=== PATIENT | male | born 1950 | race Caucasian/White ===

== ENCOUNTER 2017-02-28 16:11 | Emergency (ER) | payer OTHER ==
[~2017-02-28] VITALS: Ht 170.2 cm; Wt 89.0 kg
[~2017-02-28 16:11] MED LIST: BENA1TAB4 PO; DIGO125T73 PO; DILT240C62 PO; FLOMAX PO; WARF4TAB PO
[2017-02-28 16:14] VITALS: Ht 170.2 cm; Wt 89.0 kg
[2017-02-28] MEDS ORDERED: TAMS0.4C2 PO (17:10)
[2017-02-28] MEDS ORDERED: DONE10TA7 PO (17:11)
[2017-02-28] MEDS ORDERED: APIX5TAB PO (17:11)
--- NOTE | 2017-02-28 17:19 | ERD ---
ER Documentation Chief Complaint Date/Time DATE: 02/28/17 TIME: 17:19 Chief Complaint DIZZINESS AFTER 2 TAB ARICEPT HPI Patient is a 66-year-old male with hypertension and dementia who presents with dizziness. The patient said that he is supposed to be taking Aricept for the past 1 month but he has not been taking it. He felt like he should be taking it so today he took twice the dose that he was supposed to take and then felt dizzy almost immediately afterwards. He said that he just feels generally weak all over. This happened 1.5 hours ago. His primary doctor is Dr. Mckeon. ROS All systems reviewed and are negative except as per history of present illness. Medications Home Meds Reported Medications Donepezil* (Donepezil*) 10 Mg Tablet, 10 MG PO DAILY, #30 TAB 02/28/17 Apixaban* (Eliquis*) 5 Mg Tablet, 5 MG PO BID, TAB 02/28/17 Tamsulosin Hcl* (Tamsulosin Hcl*) 0.4 Mg Cap.er.24h, 0.4 MG PO BID, CAP 02/28/17 Diltiazem Hcl* (Cartia XT*) 240 Mg Cap.sr.24h, 240 MG PO DAILY 10/09/12 Digoxin (Digoxin) 125 Mcg Tablet, 125 MCG PO DAILY 10/09/12 Benazepril/Hydrochlorothiazide (Benazepril-Hctz 20-25 Mg Tab) 1 Tab Tablet, 1 TAB PO DAILY 10/09/12 Discontinued Reported Medications [Flomax] No Conflict Check, PO DAILY 02/11/14 Warfarin Sodium* (Coumadin*) 4 Mg Tablet, 9 MG PO DAILY, 0 Refills 10/09/12 Allergies Allergies: Coded Allergies: No Known Allergy (Verified , 02/28/17) PMhx/Soc History of Surgery: Yes (rt arm, r inquinal hernia, ) Anesthesia Reaction: No Hx Neurological Disorder: No Hx Respiratory Disorders: No Hx Cardiac Disorders: Yes (a- ffibrillation) Hx Psychiatric Problems: No Hx Miscellaneous Medical Probl: No Hx Alcohol Use: Yes Hx Substance Use: No Hx Tobacco Use: No FmHx Family History: diabetes Physical Exam Vitals Vital Signs Date Time Temp Pulse Resp B/P Pulse Ox O2 Delivery O2 Flow Rate FiO2 02/28/17 16:14 98.1 88 18 166/90 99 Physical Exam Const: No acute distress Head: Atraumatic Eyes: Normal Conjunctiva ENT: Normal External Ears, Nose and Mouth. Neck: Full range of motion..~ No meningismus. Resp: Clear to auscultation bilaterally Cardio: Regular rate and rhythm, no murmurs Abd: Soft, non tender, non distended. Normal bowel sounds Skin: No petechiae or rashes Back: No midline or flank tenderness Ext: No cyanosis, or edema Neur: Awake and alert, no slurred speech, cranial nerves II through XII intact, strength is 5 out of 5 in all 4 extremities, normal Romberg Psych: Normal Mood and Affect Results 24 hrs Laboratory Tests Test 02/28/17 17:18 Bedside Glucose 147mg/dL [facility] EKG read by me: Rate/Rhythm: Regular rate and rhythm at a rate of 76 Intervals: Normal Impression: No evidence of ischemia or arrhythmia Accu-Chek is normal at 147. Patient is a 66-year-old male with dementia and hypertension who presents with dizziness. I believe this is related to taking twice a dose of Aricept that he was supposed to take. I doubt stroke. I doubt intracranial hemorrhage or mass. I doubt acute coronary syndrome or hypoglycemia. The patient will be discharged home and can follow-up with his primary doctor within 24-48 hours. I told him to take only the amount of medicine prescribed to him. Departure Diagnosis: Primary Impression: Medication reaction Encounter type: initial encounter Qualified Code: T88.7XXA - Medication reaction, initial encounter Additional Impression: Dizziness Condition: Fair Patient Instructions: Taking Medication Safely, Dizziness, Unk Cause Additional Instructions: Llame al doctor MALUZ y angela lou JOSE PARA DENTRO DE 1-2 PARADA.Dgale a la secretaria que nosotros le instruimos hacer esta jose.Avise o llame si olivas condicin se empeora antes de la jose. Regresa aqui si peor o no mejor. LLUVIA RAMACHANDRAN MD Feb 28, 2017 17:19
== END 2017-02-28 17:47 | disposition home or self-care (01) ==
LOC: E/R 16:11
DX: R42 Dizziness and giddiness (principal); T44.0X5A Adverse effect of anticholinesterase agents, initial encounter; I10 Essential (primary) hypertension; Z79.01 Long term (current) use of anticoagulants
CPT/HCPCS: 82962; 93005

== ENCOUNTER 2019-03-10 17:26 | Emergency (ER) | payer OTHER ==
[~2019-03-10] VITALS: Ht 170.2 cm; Wt 100.0 kg
[~2019-03-10 17:26] MED LIST changes: +APIX5TAB PO; +DONE10TA7 PO; -FLOMAX PO; +TAMS0.4C2 PO; -WARF4TAB PO
[2019-03-10 17:28] VITALS: Ht 170.2 cm; Wt 100.0 kg
[2019-03-10] MEDS ORDERED: IOHEXOL 300MG/ML 150 ML BTL ONE (22:53)
[2019-03-10] MEDS ORDERED: SOD CHLORIDE 0.9% 100 ML ONE (22:53)
--- NOTE | 2019-03-10 23:29 | ERD ---
ER Documentation Chief Complaint Chief Complaint pt is bib self with c/o abd pain sent by PMD for "abd mass" HPI This is a very pleasant 5-year-old male who presents to the emergency department for an abdominal mass that he noticed 1 week prior to arrival. The patient stated he had been in [place] undergoing a massage lying on his stomach, with a massage therapist pressed hard and he felt a mass. Indicates he had no weight loss. He complains of mild abdominal pain more prominent on the left side. He states this is been present for weeks. It is intermittent. The pain is a 4 out of 10 in intensity. He states there is no alleviating or exacerbating factors to the pain. He denies any hemoptysis hematemesis or melanotic stools. He has no shortness of breath at rest or exertion. He denies any weight loss. He went to his primary care physician earlier today who prompted him to come to the emergency department to be further evaluated. ROS All systems reviewed and are negative except as per history of present illness. Medications Home Meds Reported Medications Donepezil* (Donepezil*) 10 Mg Tablet, 10 MG PO DAILY, #30 TAB 02/28/17 Apixaban* (Eliquis*) 5 Mg Tablet, 5 MG PO BID, TAB 02/28/17 Tamsulosin Hcl* (Tamsulosin Hcl*) 0.4 Mg Cap.er.24h, 0.4 MG PO BID, CAP 02/28/17 Diltiazem Hcl* (Cartia XT*) 240 Mg Cap.sr.24h, 240 MG PO DAILY 10/09/12 Digoxin (Digoxin) 125 Mcg Tablet, 125 MCG PO DAILY 10/09/12 Benazepril/Hydrochlorothiazide (Benazepril-Hctz 20-25 Mg Tab) 1 Tab Tablet, 1 TAB PO DAILY 10/09/12 Allergies Allergies: Coded Allergies: No Known Allergy (Verified , 02/28/17) PMhx/Soc History of Surgery: Yes (rt arm, r inquinal hernia, ) Anesthesia Reaction: No Hx Neurological Disorder: No Hx Respiratory Disorders: No Hx Cardiac Disorders: Yes (a- ffibrillation) Hx Psychiatric Problems: No Hx Miscellaneous Medical Probl: No Hx Alcohol Use: Yes (occassionally) Hx Substance Use: No Hx Tobacco Use: No Smoking Status: Never smoker Physical Exam Vitals Vital Signs Date Temp Pulse Resp B/P (MAP) Pulse Ox O2 O2 Flow FiO2 Time Delivery Rate 03/10/19 98.3 103 18 175/77 97 17:28 (109) Physical Exam Constitutional:Well-developed. Well-nourished. HEENT:Normocephalic. Atraumatic.Pupils were equal round reactive to light. Moist mucous membranes.No tonsillar exudates. Neck: No nuchal rigidity. No lymphadenopathy. No posterior cervical spine tenderness or step-offs. Respiratory: Not using accessory muscles of respiration.Lungs were clear to auscultation bilaterally. No rhonchi. No rales. No wheezing. Cardiovascular: Regular rate regular rhythm.No murmurs. No rubs were appreciated.S1, S2 normal. Distal pulses are palpable 2+ bilaterally. GI: Abdomen was soft. Mild tenderness in the epigastric region non Distended. No abdominal bruits. Abdominal mass palpable in the epigastric region extending into the right upper quadrant, nonpulsatile, mild tenderness. No rebound. No guarding. Bowel sounds were present and normal. Muscle skeletal: Full range of motion of both the upper and lower extremities bilaterally.Normal muscle tone.No assymetrical calf tenderness or swelling. Skin: No petechia, no purpura. No lesions on the palms or the soles of the feet. No maculopapular rash. NEURO: Patient was alert, awake, orientated x3.No facial droop. Gait observed and normal with no ataxia.Speech had regular rate and rhythm. No focal neurological deficits. Result Diagram: 03/10/19215403/[id number]/192154 Results 24 hrs Laboratory Tests Test 03/10/19 21:55 White Blood Count 8.0 10^3/ul Red Blood Count 5.30 10^6/ul Hemoglobin 15.8 g/dl Hematocrit 47.3 % Mean Corpuscular Volume 89.2 fl Mean Corpuscular Hemoglobin 29.8 pg Mean Corpuscular Hemoglobin Concent 33.4 g/dl Red Cell Distribution Width 14.3 % Platelet Count 162 10^3/UL Mean Platelet Volume 11.2 fl Immature Granulocytes % 0.400 % Neutrophils % 79.8 % Lymphocytes % 13.1 % Monocytes % 5.9 % Eosinophils % 0.2 % Basophils % 0.6 % Nucleated Red Blood Cells % 0.0 /100WBC Immature Granulocytes # 0.030 10^3/ul Neutrophils # 6.4 10^3/ul Lymphocytes # 1.1 10^3/ul Monocytes # 0.5 10^3/ul Eosinophils # 0.0 10^3/ul Basophils # 0.1 10^3/ul Nucleated Red Blood Cells # 0.0 10^3/ul Prothrombin Time 15.4 Sec Prothrombin Time Ratio 1.2 INR International Normalized Ratio 1.21 Activated Partial Thromboplast Time 31.0 Sec Sodium Level 145 mmol/L Potassium Level 5.4 mmol/L Chloride Level 109 mmol/L Carbon Dioxide Level 27 mmol/L Anion Gap 9 Blood Urea Nitrogen 15 mg/dl Creatinine 0.81 mg/dl Est Glomerular Filtrat Rate mL/min > 60 mL/min Glucose Level 126 mg/dl Calcium Level 9.7 mg/dl Total Bilirubin 0.7 mg/dl Direct Bilirubin 0.00 mg/dl Indirect Bilirubin 0.7 mg/dl Aspartate Amino Transf (AST/SGOT) 75 IU/L Alanine Aminotransferase (ALT/SGPT) 62 IU/L Alkaline Phosphatase 178 IU/L Troponin I < 0.012 ng/ml Total Protein 8.1 g/dl Albumin 4.5 g/dl Globulin 3.60 g/dl Albumin/Globulin Ratio 1.25 Amylase Level 61 U/L Lipase 70 U/L Current Medications Medications Dose Sig/Burt Start Time Status Last (Trade) Ordered Route PRN Stop Time Admin Dose Reason Admin Sodium 100 ml @ ud STK-MED 03/10/19 DC Chloride ONCE .ROUTE 22:53 03/10/19 22:54 Iohexol 150 ml STK-MED 03/10/19 DC (Omnipaque ONCE .ROUTE 22:53 300mg/ ml) 03/10/19 22:54 Procedures/MDM This patient presented to the emergency department with abdominal pain and was seen and evaluated by myself. My differential diagnosis included but was not limited to abdominal aortic aneurysm, appendicitis, pancreatitis, perforated peptic ulcer, perforated viscus, Boerhaaves syndrome or visceral pain such as diverticulitis, DKA, esophagitis, hepatitis or bowel obstruction. The patient was placed on a c programmer, continuous pulse oximetry, and IV access was established by nursing staff. The patient was refusing analgesic medication at this time I obtained a 12-lead EKG tracing to rule out for atypical myocardial infarction. 12 Lead EKG tracing ordered and reviewed by myself showed: Normal sinus rhythm of 74 bpm and no arrhythmia. NJ interval normal. QRS duration normal. No ST segment elevation No ST segment depression. No changes consistent with acute ischemia. The patient had mild hyponatremia. Potassium was within the upper limits of normal at 5.4 with a normal renal function. Given that patient had a palpable abdominal mass I do feel is necessary to obtain a CT scan of the abdomen. This was reviewed with the radiologist myself and indicate the following: Approximately 5 cm heterogeneously enhancing mass head and uncinate process of the pancreas with multiple heterogeneously enhancing liver masses. Findings are highly suspicious for metastatic pancreatic cancer. No enlarged lymph nodes. No evidence of pancreatic ductal or biliary ductal obstruction. Scar versus plate-like atelectasis right lower lobe. Renal cysts. No further workup required. Enlarged prostate with mass effect and possible invasion base of urinary bladder. Correlation with PSA is recommended. I spoke with the patient regarding his results. He stated he has a primary care physician Dr. Mckeon who he would prefer to follow-up with. He did not want to be admitted to the hospital this time. I explained to the patient the seriousness of his condition and to not delay outpatient follow-up. His family is present he stated he will be able to do this. The patient was discharged home in fair condition. They were instructed to return to the emergency department at any time if there was any worsening of their condition. The patient stated they would follow up with their PCP in the next 24-48 hours to initiate a suitable medication regimen under the care of their PCP as well as to allow their PCP to monitor any drug reactions. The patient was discharged home with prescriptions after they gave informed consent to the new medication. They were also fully informed by myself on the adverse effects and adverse drug interactions in order to provide adequate safeguards to prevent possible adverse reactions to medications. Departure Diagnosis: Primary Impression: Pancreatic cancer Pancreatic malignancy location: head of pancreas Qualified Codes: C25.0 - Malignant neoplasm of head of pancreas Condition: SAIMA Taylor MD Mar 10, 2019 23:29
[2019-03-10 23:48] VITALS: BP 169/82; PULSE 80; RESP 18
== END 2019-03-11 00:20 | disposition home or self-care (01) ==
LOC: E/R 17:26
DX: C25.0 Malignant neoplasm of head of pancreas (principal); R40.2142 Coma scale, eyes open, spontaneous, at arrival to emergency department; R40.2252 Coma scale, best verbal response, oriented, at arrival to emergency department; R40.2362 Coma scale, best motor response, obeys commands, at arrival to emergency department
CPT/HCPCS: 71045; 74177; 80053; 82150; 83690; 84484; 85025; 85610; 85730; 93005; 99285; Q9967

== ENCOUNTER 2019-03-26 04:20 | Emergency (ER) | payer OTHER ==
[~2019-03-26] VITALS: Ht 167.6 cm; Wt 92.9 kg
[2019-03-26 04:24] VITALS: Ht 167.6 cm; Wt 92.9 kg
[2019-03-26] MEDS ORDERED: CIPR500T4 PO (05:36)
[2019-03-26 05:43] VITALS: BP 148/80; PULSE 77; RESP 17
--- NOTE | 2019-03-26 05:44 | ERD ---
ER Documentation Chief Complaint Chief Complaint unable to urinate x 2 hours HPI This is a very pleasant 68-year-old male comes in with complaints of inability urinate for the past 2 hours. No fevers no chills no nausea no vomiting. No other current issues. History of enlarged prostate. ROS All systems reviewed and are negative except as per history of present illness. Medications Home Meds Active Scripts Ciprofloxacin Hcl* (Ciprofloxacin Hcl*) 500 Mg Tablet, 500 MG PO BID for 5 Days, TAB Prov:THOMAS SANDERS 03/26/19 Reported Medications Donepezil* (Donepezil*) 10 Mg Tablet, 10 MG PO DAILY, #30 TAB 02/28/17 Apixaban* (Eliquis*) 5 Mg Tablet, 5 MG PO BID, TAB 02/28/17 Tamsulosin Hcl* (Tamsulosin Hcl*) 0.4 Mg Cap.er.24h, 0.4 MG PO BID, CAP 02/28/17 Diltiazem Hcl* (Cartia XT*) 240 Mg Cap.sr.24h, 240 MG PO DAILY 10/09/12 Digoxin (Digoxin) 125 Mcg Tablet, 125 MCG PO DAILY 10/09/12 Benazepril/Hydrochlorothiazide (Benazepril-Hctz 20-25 Mg Tab) 1 Tab Tablet, 1 TAB PO DAILY 10/09/12 Allergies Allergies: Coded Allergies: No Known Allergy (Verified , 02/28/17) PMhx/Soc History of Surgery: Yes (rt arm, r inquinal hernia, ) Anesthesia Reaction: No Hx Neurological Disorder: No Hx Respiratory Disorders: No Hx Cardiac Disorders: Yes (a- ffibrillation) Hx Psychiatric Problems: No Hx Miscellaneous Medical Probl: Yes (BPH) Hx Alcohol Use: Yes (occassionally) Hx Substance Use: No Hx Tobacco Use: No Smoking Status: Never smoker Physical Exam Vitals Vital Signs Date Temp Pulse Resp B/P (MAP) Pulse Ox O2 O2 Flow FiO2 Time Delivery Rate 03/26/19 97.4 110 18 189/98 97 04:24 (128) Physical Exam Const: No acute distress Head: Atraumatic Eyes: Normal Conjunctiva ENT: Normal External Ears, Nose and Mouth. Neck: Full range of motion. No meningismus. Resp: Clear to auscultation bilaterally Cardio: Regular rate and rhythm, no murmurs Abd: Soft, non tender, non distended. Normal bowel sounds Skin: No petechiae or rashes Back: No midline or flank tenderness Ext: No cyanosis, or edema Neur: Awake and alert Psych: Normal Mood and Affect Results 24 hrs Laboratory Tests Test 03/26/19 04:41 Urine Color YELLOW Urine Clarity SLIGHTLY CLOUDY Urine pH 9.0 Urine Specific Huntley 1.005 Urine Ketones NEGATIVE mg/dL Urine Nitrite NEGATIVE mg/dL Urine Bilirubin NEGATIVE mg/dL Urine Urobilinogen NEGATIVE mg/dL Urine Leukocyte Esterase NEGATIVE Jose/ul Urine Microscopic RBC 5 /HPF Urine Microscopic WBC 0 /HPF Urine Amorphous Crystals FEW /HPF Urine Hemoglobin NEGATIVE mg/dL Urine Glucose NEGATIVE mg/dL Urine Total Protein NEGATIVE mg/dl Procedures/MDM Emergency room course: Patient seen and evaluated Moreno catheter placed. Urinalysis sent Medical decision making: Very pleasant male with urinary retention. Discharged with Moreno catheter leg bag along with ciprofloxacin for antibiotic coverage. Has follow-up with primary care physician for possible outpatient urology follow-up otherwise follow-up in 24 hours for catheter removal. Departure Diagnosis: Primary Impression: Retention of urine Condition: Stable Patient Instructions: Urinary Retention, Male THOMAS SANDERS March 26, 2019 05:44
== END 2019-03-26 05:45 | disposition home or self-care (01) ==
LOC: E/R 04:20
DX: R33.9 Retention of urine, unspecified (principal)
CPT/HCPCS: 81001; 81003; 87086

== ENCOUNTER 2019-04-10 11:19 | Day surgery (SDC) | payer OTHER ==
[~2019-04-10] VITALS: Ht 167.6 cm; Wt 89.5 kg
[2019-04-10] VITALS (19 sets, daily range): BP systolic 114–160; BP diastolic 70–86; PULSE 56–87; RESP 17–24; Ht 167.6 cm; Wt 89.5 kg
[~2019-04-10 11:19] MED LIST changes: +CIPR500T4 PO
[2019-04-10] MEDS ORDERED: LORA0.5T PO (12:52)
[2019-04-10] MEDS ORDERED: TRAM50TA2 PO (12:52)
[2019-04-10] MEDS ORDERED: SOD CHLORIDE 0.9% 1,000 ML IV SCH (13:09)
[2019-04-10] MEDS ORDERED: LIDOCAINE 1% (MPF) 5 ML VIAL ONE (13:22)
[2019-04-10] MEDS ORDERED: GELATIN 12MM X 7 MM SPONGE ONE (13:22)
[2019-04-10] MEDS ORDERED: MIDAZOLAM 1 MG/ML 2 ML INJ ONE (14:24)
[2019-04-10] MEDS ORDERED: FENTAnyl 50 MCG/ML VIAL ONE (14:24)
== END 2019-04-10 18:17 | disposition home or self-care (01) ==
LOC: SDS 11:19
PROVIDERS: ATTEND Internal Medicine Hematology & Oncology
DX: C22.7 Other specified carcinomas of liver (principal); C25.9 Malignant neoplasm of pancreas, unspecified; I10 Essential (primary) hypertension
CPT/HCPCS: 47000; 77012; 88307; 88313; J2250; J3010

== ENCOUNTER 2019-05-11 11:59 | Emergency (ER) | payer MEDICARE, OTHER ==
[~2019-05-11] VITALS: Ht 170.2 cm; Wt 96.3 kg
[~2019-05-11 11:59] MED LIST changes: -CIPR500T4 PO; -DILT240C62 PO; -DONE10TA7 PO; +LORA0.5T PO; +TRAM50TA2 PO
[2019-05-11 12:27] VITALS: Ht 170.2 cm; Wt 96.3 kg
[2019-05-11] MEDS ORDERED: HYDROmorphONE 2 MG/ML SYG IM STA (13:07)
[2019-05-11] MEDS ORDERED: ONDANSETRON (ODT) 4 MG TAB ODT STA (13:07)
[2019-05-11] MEDS ORDERED: APIX5TAB PO (14:29)
[2019-05-11] MEDS ORDERED: TAMS-14 PO (14:30)
[2019-05-11] MEDS ORDERED: DILT240C62 PO (14:31)
[2019-05-11] MEDS ORDERED: DIGO125T PO (14:31)
[2019-05-11] MEDS ORDERED: CYAN1TAB16 PO (14:32)
[2019-05-11] MEDS ORDERED: LORA1TAB PO (14:32)
[2019-05-11] MEDS ORDERED: ERGO500013 PO (14:34)
[2019-05-11] MEDS ORDERED: CIPR500T4 PO (14:59)
[2019-05-11] MEDS ORDERED: CIPROFLOXACIN 500 MG TAB PO ONE (15:00)
--- NOTE | 2019-05-11 15:10 | ERD ---
ER Documentation Chief Complaint Chief Complaint PAIN ON GROIN/TESTICULAR AREA X9 DAYS, HX OF PANCREATIC CA HPI Patient is a 68-year-old male who presents with groin pain. The patient has 9 days of pain. He has pain with walking. He started chemotherapy on Saturday but this pain started before chemotherapy. He had a CT scan done at another emergency department a few days ago and was told that he has a large prostate but no other issues. He tried tramadol for pain. Upon review of old medical records this is the patient's ninth visit to the ER since 2000. His primary doctor is Dr. Edy Mckeon. ROS All systems reviewed and are negative except as per history of present illness. Medications Home Meds Active Scripts Ciprofloxacin Hcl* (Ciprofloxacin Hcl*) 500 Mg Tablet, 500 MG PO BID for 7 Days, TAB Prov:LLUVIA RAMACHANDRAN MD 05/11/19 Reported Medications Ergocalciferol (Vitamin D2) (VITAMIN D2) 50,000 Unit Capsule, 60059 UNIT PO EVERY SAT, CAP 05/11/19 Lorazepam* (Lorazepam*) 1 Mg Tablet, 1 MG PO HS PRN for SLEEP, #30 TAB 05/11/19 Cyanocobalamin/FA/Pyridoxine (Folbee Tablet) 1 Each Tablet, 1 EACH PO DAILY, TAB 05/11/19 Digoxin* (Digitek*) 125 Mcg Tablet, 0.125 MG PO DAILY, TAB 05/11/19 Diltiazem Hcl* (Cartia XT*) 240 Mg Cap.sr.24h, 240 MG PO DAILY, #30 CAP 05/11/19 Tamsulosin Hcl* (Flomax*) 0.4 Mg Cap.er.24h, 0.4 MG PO BID, CAP 05/11/19 Apixaban* (Eliquis*) 5 Mg Tablet, 5 MG PO BID, TAB 05/11/19 Discontinued Reported Medications Lorazepam* (Lorazepam*) 0.5 Mg Tablet, 0.5 MG PO HS PRN for SLEEP, TAB 04/10/19 Tramadol HCl (Tramadol HCl) 50 Mg Tablet, 50 MG PO BID for PAIN, #60 TAB 04/10/19 Apixaban* (Eliquis*) 5 Mg Tablet, 5 MG PO BID, TAB 02/28/17 Tamsulosin Hcl* (Tamsulosin Hcl*) 0.4 Mg Cap.er.24h, 0.4 MG PO BID, CAP 02/28/17 Digoxin (Digoxin) 125 Mcg Tablet, 125 MCG PO DAILY 10/09/12 Benazepril/Hydrochlorothiazide (Benazepril-Hctz 20-25 Mg Tab) 1 Tab Tablet, 1 TAB PO DAILY 10/09/12 Allergies Allergies: Coded Allergies: No Known Allergy (Verified , 05/11/19) PMhx/Soc History of Surgery: Yes (RT INGUINAL HERNIA REPAIR) Anesthesia Reaction: No Hx Neurological Disorder: No Hx Respiratory Disorders: No Hx Cardiac Disorders: Yes (AFIB, HTN) Hx Psychiatric Problems: No Hx Miscellaneous Medical Probl: No Hx Alcohol Use: Yes (SOCIAL) Hx Substance Use: No Hx Tobacco Use: No Smoking Status: Former smoker FmHx Family History: diabetes Physical Exam Vitals Vital Signs Date Temp Pulse Resp B/P (MAP) Pulse Ox O2 O2 Flow FiO2 Time Delivery Rate 05/11/19 98.0 77 18 149/66 99 Room Air 14:18 (93) 05/11/19 97.9 86 17 159/74 97 12:27 (102) Physical Exam Const: No acute distress Head: Atraumatic Eyes: Normal Conjunctiva ENT: Normal External Ears, Nose and Mouth. Neck: Full range of motion. No meningismus. Resp: Clear to auscultation bilaterally Cardio: Regular rate and rhythm, no murmurs Abd: Soft, non tender, non distended. Normal bowel sounds, no obvious hernia palpated Skin: No petechiae or rashes Back: No midline or flank tenderness Ext: No cyanosis, or edema Neur: Awake and alert : Testicular swelling, mild tenderness to palpation of the right testicle with normal lie Results 24 hrs Current Medications Medications Dose Sig/Burt Start Time Status Last (Trade) Ordered Route PRN Stop Time Admin Dose Reason Admin 2 mg ONCE STAT 05/11/19 DC 05/11/19 Hydromorphone IM 13:07 13:13 HCl 05/11/19 13:08 (Dilaudid) Ondansetron 4 mg ONCE STAT 05/11/19 DC 05/11/19 HCl (Zofran ODT 13:07 13:13 Odt) 05/11/19 13:08 500 mg ONCE ONCE 05/11/19 DC Ciprofloxacin PO 15:00 (Cipro) 05/11/19 15:01 Procedures/MDM Ultrasound of the testicles show right-sided epididymitis per radiology. Patient is a 68-year-old male with right-sided groin pain. The patient was found to have acute epididymitis. I doubt testicular torsion. I doubt appendicitis or bowel obstruction. I believe outpatient management is appropriate. The patient will be given a one-week course of Cipro and the first dose was given in the emergency department. He can return for any worsening symptoms. Departure Diagnosis: Primary Impression: Epididymitis Additional Impression: Groin pain, lower right quadrant Condition: Fair Patient Instructions: Epididymitis Referrals: Your doctor Additional Instructions: Llame al doctor nombrado abajo (Referral Sources) MAANA y angela lou JOSE PARA DENTRO DE LOU SEMANA. Dgale a la secretaria que nosotros le instruimos hacer esta jose.Avise o llame si olivas condicin se empeora antes de la jose. LLUVIA RAMACHANDRAN MD May 11, 2019 15:10
[2019-05-11 15:35] VITALS: BP 152/69; PULSE 79; RESP 18
== END 2019-05-11 15:40 | disposition home or self-care (01) ==
LOC: E/R 11:59
DX: N45.1 Epididymitis (principal); I10 Essential (primary) hypertension; D01.7 Carcinoma in situ of other specified digestive organs; Z79.01 Long term (current) use of anticoagulants; Z87.891 Personal history of nicotine dependence
CPT/HCPCS: 76870; 96372; 99285; J1170

== ENCOUNTER 2019-05-13 13:57 | Emergency (ER) | payer MEDICARE, OTHER ==
[~2019-05-13] VITALS: Ht 162.6 cm; Wt 89.0 kg
[~2019-05-13 13:57] MED LIST changes: -BENA1TAB4 PO; +CIPR500T4 PO; +CYAN1TAB16 PO; +DIGO125T PO; -DIGO125T73 PO; +DILT240C62 PO; +ERGO500013 PO; -LORA0.5T PO; +LORA1TAB PO; +TAMS-14 PO; -TAMS0.4C2 PO; -TRAM50TA2 PO
[2019-05-13 14:04] VITALS: Ht 162.6 cm; Wt 89.0 kg
[2019-05-13] MEDS ORDERED: morphine 4 MG/ML VIAL IV STA (16:56)
[2019-05-13] MEDS ORDERED: SOD CHLORIDE 0.9% 1,000 ML IV STA (16:56)
[2019-05-13] MEDS ORDERED: ONDANSETRON 4 MG INJ IV STA ×2 (16:56→19:05)
[2019-05-13] MEDS ORDERED: SOD CHLORIDE 0.9% 100 ML ONE (18:29)
[2019-05-13] MEDS ORDERED: IOHEXOL 300MG/ML 150 ML BTL ONE (18:29)
--- NOTE | 2019-05-13 18:30 | ERD ---
ER Documentation Chief Complaint Chief Complaint HERE 05/11 C/O SAME TESTICULAR PAIN, DX EPIDIDIMYTIS HPI This is a 68-year-old male with a history of pancreatic metastatic carcinoma. The patient was diagnosed on March 10, 2019 roughly 2 months ago when he was seen and evaluated by myself in the emergency department. The patient indicated he received his first dose of chemotherapy 6 days ago. He was scheduled to receive his chemotherapy on both Saturday and Saturday however this was unable to be obtained due to the fact that the patient had been diagnosed with epididymitis and needed to complete his antibiotics. The patient was seen and evaluated 2 days ago in the emergency department with a testicular ultrasound for his right testicular pain that did suggest epididymitis. The patient stated he has been taking his antibiotics. He states however that he is not experiencing any pain in the right testicle but is experience any pain in the right inguinal and right lower quadrant region. It has worsened. He states it is 10 out of 10 in intensity. He has not experience any hemoptysis hematemesis or melanotic stools. He has no chest pain. No shortness of breath. ED has taken tramadol but this does not improve his pain. The pain is exacerbated whenever he moves. He denies any frequency urgency or dysuria no urinary retention or gross hematuria. ROS All systems reviewed and are negative except as per history of present illness. Medications Home Meds Active Scripts Docusate Sodium* (Colace*) 100 Mg Capsule, 100 MG PO TID, #30 CAP Prov:SAIMA PROCTOR MD 05/13/19 Hydrocodone/Acetaminophen ([place] 10-325 Tablet) 1 Each Tablet, 1 TAB PO Q6H PRN for PAIN, #20 TAB Prov:SAIMA PROCTOR MD 05/13/19 Ciprofloxacin Hcl* (Ciprofloxacin Hcl*) 500 Mg Tablet, 500 MG PO BID for 7 Days, TAB Prov:LLUVIA RAMACHANDRAN MD 05/11/19 Reported Medications Ergocalciferol (Vitamin D2) (VITAMIN D2) 50,000 Unit Capsule, 02744 UNIT PO EVERY SAT, CAP 05/11/19 Lorazepam* (Lorazepam*) 1 Mg Tablet, 1 MG PO HS PRN for SLEEP, #30 TAB 05/11/19 Cyanocobalamin/FA/Pyridoxine (Folbee Tablet) 1 Each Tablet, 1 EACH PO DAILY, TAB 05/11/19 Digoxin* (Digitek*) 125 Mcg Tablet, 0.125 MG PO DAILY, TAB 05/11/19 Diltiazem Hcl* (Cartia XT*) 240 Mg Cap.sr.24h, 240 MG PO DAILY, #30 CAP 05/11/19 Tamsulosin Hcl* (Flomax*) 0.4 Mg Cap.er.24h, 0.4 MG PO BID, CAP 05/11/19 Apixaban* (Eliquis*) 5 Mg Tablet, 5 MG PO BID, TAB 05/11/19 Discontinued Reported Medications Lorazepam* (Lorazepam*) 0.5 Mg Tablet, 0.5 MG PO HS PRN for SLEEP, TAB 04/10/19 Tramadol HCl (Tramadol HCl) 50 Mg Tablet, 50 MG PO BID for PAIN, #60 TAB 04/10/19 Apixaban* (Eliquis*) 5 Mg Tablet, 5 MG PO BID, TAB 02/28/17 Tamsulosin Hcl* (Tamsulosin Hcl*) 0.4 Mg Cap.er.24h, 0.4 MG PO BID, CAP 02/28/17 Digoxin (Digoxin) 125 Mcg Tablet, 125 MCG PO DAILY 10/09/12 Benazepril/Hydrochlorothiazide (Benazepril-Hctz 20-25 Mg Tab) 1 Tab Tablet, 1 TAB PO DAILY 10/09/12 Allergies Allergies: Coded Allergies: No Known Allergy (Verified , 05/13/19) PMhx/Soc History of Surgery: Yes (RT INGUINAL HERNIA REPAIR) Anesthesia Reaction: No Hx Neurological Disorder: No Hx Respiratory Disorders: No Hx Cardiac Disorders: Yes (AFIB, HTN) Hx Psychiatric Problems: No Hx Miscellaneous Medical Probl: Yes (PANCREATIC CA, BPH, epidimitis) Hx Alcohol Use: Yes (SOCIAL) Hx Substance Use: No Hx Tobacco Use: No Smoking Status: Never smoker Physical Exam Vitals Vital Signs Date Temp Pulse Resp B/P (MAP) Pulse Ox O2 O2 Flow FiO2 Time Delivery Rate 05/13/19 98.4 77 14 157/83 97 Room Air 17:57 (107) 05/13/19 98.3 76 16 143/71 97 Room Air 16:39 (95) 05/13/19 98.1 90 18 173/80 99 14:04 (111) Physical Exam Constitutional:Well-developed. Well-nourished. Respiratory: Not using accessory muscles of respiration.Lungs were clear to auscultation bilaterally. No rhonchi. No rales. No wheezing. Cardiovascular: Regular rate regular rhythm.No murmurs. No rubs were apprecia sharad.S1, S2 normal. Distal pulses are palpable 2+ bilaterally. GI: Abdomen was soft. Palpable mass in the epigastric region. Tenderness in the right lower quadrant nonspecific over McBurney's point. Psoas sign negative. Obturator sign negative. No palpable masses in the inguinal region on the right or the left. Non Distended. No pulsatile abdominal masses or bruits. No rebound. No guarding. Bowel sounds were present and normal. : No abnormal lie to both testicles. No evidence of Keira's gangrene or discoloration of the testicles. No tenderness of the right or the left testicle. No asymmetrical swelling of the testicles. Muscle skeletal: Full range of motion of both the upper and lower extremities bilaterally.Normal muscle tone.No assymetrical calf tenderness or swelling. Straight leg test negative bilaterally. Skin: No petechia, no purpura. No lesions on the palms or the soles of the feet. No maculopapular rash. No jaundice. NEURO: Patient was alert, awake, orientated x3.No facial droop. Gait observed and normal with no ataxia.Speech had regular rate and rhythm. No focal neurological deficits. Result Diagram: 05/13/19 1720 05/13/19 1720 Results 24 hrs Laboratory Tests Test 05/13/19 17:20 White Blood Count 10.5 10^3/ul Red Blood Count 4.25 10^6/ul Hemoglobin 12.8 g/dl Hematocrit 39.9 % Mean Corpuscular Volume 93.9 fl Mean Corpuscular Hemoglobin 30.1 pg Mean Corpuscular Hemoglobin Concent 32.1 g/dl Red Cell Distribution Width 15.5 % Platelet Count 169 10^3/UL Mean Platelet Volume 10.7 fl Immature Granulocytes % 0.800 % Neutrophils % 85.7 % Lymphocytes % 10.0 % Monocytes % 2.7 % Eosinophils % 0.5 % Basophils % 0.3 % Nucleated Red Blood Cells % 0.0 /100WBC Immature Granulocytes # 0.080 10^3/ul Neutrophils # 9.0 10^3/ul Lymphocytes # 1.1 10^3/ul Monocytes # 0.3 10^3/ul Eosinophils # 0.1 10^3/ul Basophils # 0.0 10^3/ul Nucleated Red Blood Cells # 0.0 10^3/ul Prothrombin Time 14.6 Sec Prothrombin Time Ratio 1.1 INR International Normalized Ratio 1.13 Activated Partial Thromboplast Time 26.4 Sec Urine Color YELLOW Urine Clarity CLOUDY Urine pH 7.0 Urine Specific [place] 1.010 Urine Ketones NEGATIVE mg/dL Urine Nitrite NEGATIVE mg/dL Urine Bilirubin NEGATIVE mg/dL Urine Urobilinogen NEGATIVE mg/dL Urine Leukocyte Esterase NEGATIVE Jose/ul Urine Microscopic RBC 0 /HPF Urine Microscopic WBC 1 /HPF Urine Amorphous Crystals FEW /HPF Urine Hemoglobin NEGATIVE mg/dL Urine Glucose NEGATIVE mg/dL Urine Total Protein NEGATIVE mg/dl Sodium Level 140 mmol/L Potassium Level 5.2 mmol/L Chloride Level 102 mmol/L Carbon Dioxide Level 33 mmol/L Anion Gap 5 Blood Urea Nitrogen 21 mg/dl Creatinine 0.72 mg/dl Est Glomerular Filtrat Rate mL/min > 60 mL/min Glucose Level 114 mg/dl Calcium Level 8.9 mg/dl Total Bilirubin 0.6 mg/dl Direct Bilirubin 0.00 mg/dl Indirect Bilirubin 0.6 mg/dl Aspartate Amino Transf (AST/SGOT) 122 IU/L Alanine Aminotransferase (ALT/SGPT) 166 IU/L Alkaline Phosphatase 452 IU/L Total Protein 7.2 g/dl Albumin 3.8 g/dl Globulin 3.40 g/dl Albumin/Globulin Ratio 1.11 Current Medications Medications Dose Sig/Burt Start Time Status Last (Trade) Ordered Route PRN Stop Time Admin Dose Reason Admin Sodium 1,000 ml @ Q1H STAT 05/13/19 DC 05/13/19 Chloride 1,000 mls/hr IV 16:56 17:13 05/13/19 18:00 Morphine 4 mg ONCE STAT 05/13/19 DC 05/13/19 Sulfate IV 16:56 17:14 (morphine) 05/13/19 16:57 Ondansetron 4 mg ONCE STAT 05/13/19 DC 05/13/19 HCl (Zofran IV 16:56 17:14 Inj) 05/13/19 16:57 IV Flush 10 ml STK-MED 05/13/19 DC (NS 10 ml) ONCE .ROUTE 18:29 05/13/19 18:30 Sodium 100 ml @ ud STK-MED 05/13/19 DC Chloride ONCE .ROUTE 18:29 05/13/19 18:30 Iohexol 150 ml STK-MED 05/13/19 DC (Omnipaque ONCE .ROUTE 18:29 300mg/ ml) 05/13/19 18:30 1 mg ONCE STAT 05/13/19 DC 05/13/19 Hydromorphone IV 19:05 19:13 HCl 05/13/19 19:06 (Dilaudid) Ondansetron 4 mg ONCE STAT 05/13/19 DC 05/13/19 HCl (Zofran IV 19:05 19:12 Inj) 05/13/19 19:06 Procedures/MDM This is a 68-year-old male with a known history of metastatic pancreatic carcinoma who just recently began chemotherapy that had to be placed on hold due to an infectious process. The patient returned to the emergency department today complaining of pain that initially began in his right testicle 2 days ago but now is in the right inguinal region and right lower quadrant. On physical exam I did not appreciate evidence of testicular torsion or Keira's gangrene. The patient no reproducible tenderness of his right testicle. The pain was in the right lower quadrant in the right inguinal region. I did feel is necessary at this time to obtain a CT scan of the abdomen despite reviewing the previous C T scan taken several months ago on March 10, 2019 which indicate the following: Approximately 5 cm heterogeneously enhancing mass head and uncinate process of the pancreas with multiple Findings are highly suspicious for metastatic pancreatic cancer. No enlarged lymph nodes. No evidence of pancreatic ductal or biliary ductal obstruction. The patient was given intravenous morphine and Zofran with no improvement of his pain. Therefore he was given IV Dilaudid. The patient has transaminitis which is thought to be secondary to his carcinoma. There is no evidence of abdominal wall perforation seen on today's CT scan or appendicitis. The CT scan reviewed by the radiologist indicate the following from today: 1. Progression of the multiple extensive infiltrative metastatic lesions. 2. Increase in size of pancreatic head mass. 3. Mild intrahepatic biliary ductal dilation. There is no dilation of the common bile duct or pancreatic duct. 4. Significantly enlarged prostate gland. I indicated to the patient I did not have an exact etiology into his symptoms but this could be result of his metastatic carcinoma. At this time I felt that the patient was safe to be discharged home. He is requesting for stronger analgesic medication and tramadol. I did provide a 2-day supply of [place] for the patient. 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 The patient was discharged home in fair condition. They were instructed to return to the emergency department at any time if there was any worsening of their condition. The patient stated they would follow up with their PCP in the next 24-48 hours to initiate a suitable medication regimen under the care of their PCP as well as to allow their PCP to monitor any drug reactions. The patient was discharged home with prescriptions after they gave informed consent to the new medication. They were also fully informed by myself on the adverse effects and adverse drug interactions in order to provide adequate safeguards to prevent possible adverse reactions to medications. Departure Diagnosis: Primary Impression: Pancreatic carcinoma Additional Impressions: Abdominal pain Abdominal location: right lower quadrant Qualified Codes: R10.31 - Right lower quadrant pain Pain of metastatic malignancy Condition: Fair SAIMA PROCTOR MD May 13, 2019 18:30
[2019-05-13] MEDS ORDERED: HYDR-3980 PO (18:31)
[2019-05-13] MEDS ORDERED: DOCU-144 PO (18:31)
[2019-05-13] MEDS ORDERED: HYDROmorphONE 1 MG/ML SYG IV STA ×2 (19:05→19:15)
[2019-05-13 19:50] VITALS: BP 145/78; PULSE 75; RESP 24
== END 2019-05-13 19:58 | disposition home or self-care (01) ==
LOC: FTE 13:57 → E/R 19:58
DX: D01.7 Carcinoma in situ of other specified digestive organs (principal); C78.89 Secondary malignant neoplasm of other digestive organs; I10 Essential (primary) hypertension; Z79.01 Long term (current) use of anticoagulants
CPT/HCPCS: 74177; 80053; 81001; 85025; 85610; 85730; 87086; 96374; 96375; 96376; 99285; J1170; J2270; J2405; J7030; Q9967

== ENCOUNTER 2019-07-02 12:55 | Emergency (ER) | payer MEDICARE, OTHER ==
[~2019-07-02] VITALS: Ht 170.2 cm; Wt 80.0 kg
[~2019-07-02 12:55] MED LIST changes: +DOCU-144 PO; +HYDR-3980 PO
[2019-07-02 13:08] VITALS: Ht 170.2 cm; Wt 80.0 kg
[2019-07-02] MEDS ORDERED: LIDOCAINE 2% JEL.PF.APP 5 ML UROJET SYRINGE MM ONE (13:30)
[2019-07-02 14:38] VITALS: BP 150/76; PULSE 75; RESP 20
== END 2019-07-02 14:45 | disposition home or self-care (01) ==
LOC: E/R 12:55
DX: I10 Essential (primary) hypertension (principal); Z85.07 Personal history of malignant neoplasm of pancreas; Z79.01 Long term (current) use of anticoagulants
CPT/HCPCS: 81001; 87086

== ENCOUNTER 2019-07-03 00:32 | Emergency (ER) | payer MEDICARE, OTHER ==
[~2019-07-03] VITALS: Ht 160 cm; Wt 88.8 kg
[2019-07-03 00:39] VITALS: Ht 160 cm; Wt 88.8 kg
--- NOTE | 2019-07-03 00:51 | ERD ---
ER Documentation Chief Complaint Chief Complaint STATES WORSENING BLOODY URINE W/ CLOTHS, HERE EARLIER FOR SAME HPI The patient is a 68-year-old male, presenting to the ER because of worsening pain after he had a Moreno catheter inserted around 2 PM today. He came earlier today to the ER because of near retention, had a Moreno catheter inserted.drain about 600 mL of urine spontaneous relief. He came back because of worsening pain and having an urge to urinate. He had similar symptoms previously and required temporary Moreno catheter previously but never visited his urologist. He denies fever, chills, neck pain, chest pain, dyspnea, vomiting, diarrhea, constipation. He does not smoke nor drink Past medical history: Atrial fibrillation taking Eliquis, hypertension, stage IV pancreatic cancer taking chemotherapy pill, BPH, history of acute retention Past surgical history: Right forearm ROS All systems reviewed and are negative except as per history of present illness. Medications Home Meds Active Scripts Docusate Sodium* (Colace*) 100 Mg Capsule, 100 MG PO TID, #30 CAP Prov:SAIMA PROCTOR MD 05/13/19 Hydrocodone/Acetaminophen ([place] 10-325 Tablet) 1 Each Tablet, 1 TAB PO Q6H PRN for PAIN, #20 TAB Prov:SAIMA PROCTOR MD 05/13/19 Ciprofloxacin Hcl* (Ciprofloxacin Hcl*) 500 Mg Tablet, 500 MG PO BID for 7 Days, TAB Prov:LLUVIA RAMACHANDRAN MD 05/11/19 Reported Medications Ergocalciferol (Vitamin D2) (VITAMIN D2) 50,000 Unit Capsule, 93115 UNIT PO EVERY SAT, CAP 05/11/19 Lorazepam* (Lorazepam*) 1 Mg Tablet, 1 MG PO HS PRN for SLEEP, #30 TAB 05/11/19 Cyanocobalamin/FA/Pyridoxine (Folbee Tablet) 1 Each Tablet, 1 EACH PO DAILY, TAB 05/11/19 Digoxin* (Digitek*) 125 Mcg Tablet, 0.125 MG PO DAILY, TAB 05/11/19 Diltiazem Hcl* (Cartia XT*) 240 Mg Cap.sr.24h, 240 MG PO DAILY, #30 CAP 05/11/19 Tamsulosin Hcl* (Flomax*) 0.4 Mg Cap.er.24h, 0.4 MG PO BID, CAP 05/11/19 Apixaban* (Eliquis*) 5 Mg Tablet, 5 MG PO BID, TAB 05/11/19 Allergies Allergies: Coded Allergies: No Known Allergy (Verified , 05/13/19) PMhx/Soc History of Surgery: Yes (RT INGUINAL HERNIA REPAIR) Anesthesia Reaction: No Hx Neurological Disorder: No Hx Respiratory Disorders: No Hx Cardiac Disorders: Yes (AFIB, HTN) Hx Psychiatric Problems: No Hx Miscellaneous Medical Probl: Yes (PANCREATIC CA, BPH, epidimitis) Hx Alcohol Use: Yes (SOCIAL) Hx Substance Use: No Hx Tobacco Use: No Physical Exam Vitals Vital Signs Date Temp Pulse Resp B/P (MAP) Pulse Ox O2 O2 Flow FiO2 Time Delivery Rate 07/03/19 98.6 81 17 151/81 97 Room Air 04:23 (104) 07/03/19 98.6 99 17 163/73 97 00:39 (103) Physical Exam Const: No acute distress. Head: Atraumatic. Eyes: Normal Conjunctiva. ENT: Normal External Ears, Nose and Mouth. Neck: Full range of motion. No meningismus. Resp: Clear to auscultation bilaterally. Cardio: Regular rate and rhythm. Abd: Soft, distended urinary bladder, normal bowel sounds, non tender. Skin: No petechiae or rashes. Back: No midline or flank tenderness. Ext: No cyanosis, or edema. Neur: Awake and alert. No focal deficit Psych: Normal Mood and Affect. Result Diagram: 07/03/19 0100 07/03/19 0100 Results 24 hrs Laboratory Tests Test 07/03/19 01:00 White Blood Count 9.1 10^3/ul Red Blood Count 4.09 10^6/ul Hemoglobin 11.7 g/dl Hematocrit 34.6 % Mean Corpuscular Volume 84.6 fl Mean Corpuscular Hemoglobin 28.6 pg Mean Corpuscular Hemoglobin Concent 33.8 g/dl Red Cell Distribution Width 13.0 % Platelet Count 239 10^3/UL Mean Platelet Volume 10.4 fl Immature Granulocytes % 0.300 % Neutrophils % 63.8 % Lymphocytes % 23.8 % Monocytes % 10.0 % Eosinophils % 1.4 % Basophils % 0.7 % Nucleated Red Blood Cells % 0.0 /100WBC Immature Granulocytes # 0.030 10^3/ul Neutrophils # 5.8 10^3/ul Lymphocytes # 2.2 10^3/ul Monocytes # 0.9 10^3/ul Eosinophils # 0.1 10^3/ul Basophils # 0.1 10^3/ul Nucleated Red Blood Cells # 0.0 10^3/ul Prothrombin Time 14.5 Sec Prothrombin Time Ratio 1.1 INR International Normalized Ratio 1.12 Activated Partial Thromboplast Time 38.8 Sec Sodium Level 138 mmol/L Potassium Level 3.2 mmol/L Chloride Level 105 mmol/L Carbon Dioxide Level 23 mmol/L Anion Gap 10 Blood Urea Nitrogen 9 mg/dl Creatinine 0.67 mg/dl Est Glomerular Filtrat Rate mL/min > 60 mL/min Glucose Level 300 mg/dl Calcium Level 8.7 mg/dl Current Medications Medications Dose Sig/Burt Start Time Status Last (Trade) Ordered Route PRN Stop Time Admin Dose Reason Admin Lidocaine 5 ml ONCE ONCE 07/03/19 DC 07/03/19 HCl MM 02:00 02:03 (Lidocaine 07/03/19 02:01 Urojet) Morphine 2 mg ONCE STAT 07/03/19 DC 07/03/19 Sulfate IV 01:40 02:03 (morphine) 07/03/19 01:41 Ondansetron 4 mg ONCE STAT 07/03/19 DC 07/03/19 HCl (Zofran IV 01:40 02:03 Inj) 07/03/19 01:41 Potassium 40 meq ONCE ONCE 07/03/19 DC 07/03/19 Chloride PO 03:11 03:27 (Klor-Con 20) 07/03/19 03:12 Procedures/MDM MEDICAL MAKING DECISION: The patient is an 68-year-old male, presenting with obstructed Moreno catheter. It was removed and replaced with a three-way Moreno catheter, and the urinary bladder was irrigated with saline until it became c lear. He tolerated procedure well UA was negative for infection earlier today. He was treated with potassium chloride 40 mEq p.o. for hypokalemia, morphine 2 mg IV for pain and Zofran 4mg IV for nausea The differential diagnoses considered include but are not limited to cystitis, prostate malignancy, ureteral stricture, BPH, prostatitis Departure Diagnosis: Primary Impression: Obstructed Moreno catheter Additional Impressions: Hypokalemia Anemia Condition: Good Comments I discussed the findings with the patient. I advised the patient to follow-up with the urologist in am as scheduled and return if any concern. Disclaimer: Inadvertent spelling and grammatical errors are likely due to EHR/dictation software use and do not reflect on the overall quality of patient care. Also, please note that the electronic time recorded on this note does not necessarily reflect the actual time of the patient encounter. MARGIE TREJO MD Jul 03, 2019 00:51
[2019-07-03] MEDS ORDERED: ONDANSETRON 4 MG INJ IV STA (01:40)
[2019-07-03] MEDS ORDERED: morphine 2 MG INJ IV STA (01:40)
[2019-07-03] MEDS ORDERED: LIDOCAINE 2% JEL.PF.APP 5 ML UROJET SYRINGE MM ONE (02:00)
[2019-07-03] MEDS ORDERED: POTASSIUM CHLORIDE (SR) 20 MEQ TAB PO ONE (03:11)
[2019-07-03 04:23] VITALS: BP 151/81; PULSE 81; RESP 17
== END 2019-07-03 04:28 | disposition home or self-care (01) ==
LOC: E/R 00:32
DX: T83.091A Other mechanical complication of indwelling urethral catheter, initial encounter (principal); E87.6 Hypokalemia; D64.9 Anemia, unspecified; I10 Essential (primary) hypertension; C25.1 Malignant neoplasm of body of pancreas; Y73.2 Prosthetic and other implants, materials and accessory gastroenterology and urology devices associated with adverse incidents
CPT/HCPCS: 51702; 80048; 85025; 85610; 85730; J2270; J2405; 96374; 96375